=== PATIENT | female | born 1955 | race Hispanic/Latino ===

== ENCOUNTER 2018-11-09 10:52 | Day surgery (SDC) | payer BC ==
[2018-11-03 08:47] VITALS: BMI 28.6
[2018-11-09] MEDS ORDERED: Midazolam 2 MG/2 ML VIAL ONE (13:50)
[2018-11-09] MEDS ORDERED: Midazolam 2 MG/2 ML VIAL IVP ONE (14:50)
[2018-11-09] MEDS ORDERED: Oxycodone/Acetaminophen 5/325 mg Tab PO PRN (15:08)
[2018-11-09] MEDS ORDERED: Sodium Chloride 0.45% 1,000 ML IV SCH (15:15)
[2018-11-09 15:53] VITALS: BP 124/67; PULSE 74; RESP 20; TEMP 98; O2SAT 93
--- NOTE | 2018-11-09 16:59 | RAD ---
Date of service: 11/09/2018 HISTORY: rt lung bx COMPARISON: 06/10/2012 FINDINGS: LUNGS: No active pulmonary disease. PLEURA: No significant pleural effusion identified, no pneumothorax apparent. CARDIOVASCULAR: No aortic atherosclerotic calcification present. Normal cardiac size. No pulmonary vascular congestion. OSSEOUS STRUCTURES: No significant abnormalities. VISUALIZED UPPER ABDOMEN: Normal. OTHER FINDINGS: None. IMPRESSION: No pneumothorax identified.
--- NOTE | 2018-11-09 20:13 | CT ---
PROCEDURE: CT guided right middle lobe lung biopsy. HISTORY: Solitary 2 cm right middle lobe mass. Evaluate for malignancy. PHYSICIAN(S): Chas Charles MD. TECHNIQUE: The relative risks and indications of the procedure were explained to the patient and consent obtained. The patient was placed supine on the CT scanner and preliminary images through the mid to lower lungs obtained. Conscious sedation and monitoring were provided throughout the procedure by a nurse. There is a 2 cm oblong mass in the right middle lobe anteriorly.. A oblique anterior approach was selected and the area prepped and draped in the usual sterile fashion. 1% Xylocaine was used to anesthetize the skin and soft tissues. A 19 gauge guiding needle was advanced into the 2 cm right middle lobe mass.. Its position was confirmed with CT. Using coaxial technique, multiple core biopsies were obtained. The postprocedure images show no evidence of large pneumothorax or significant hemorrhage.. IMPRESSION: 1. CT-guided right middle lobe lung biopsy as described above.
== END 2018-11-09 18:30 | disposition home or self-care (01) ==
LOC: SDS 10:52
PROVIDERS: ATTEND Radiology Vascular & Interventional Radiology
DX: D3A.090 Benign carcinoid tumor of the bronchus and lung (principal); E34.0 Carcinoid syndrome; I10 Essential (primary) hypertension
CPT/HCPCS: 32405; 71045; 77012; 88305; J2001; J2250; J2405; J3010; J7030; J7120

== ENCOUNTER 2018-11-24 06:05 | Outpatient (CLI) | payer BC | END 2018-11-24 06:06 | disposition home or self-care (01) | LOC: PET-BROA 06:05 | DX: C34.01 Malignant neoplasm of right main bronchus (principal) ==